=== PATIENT | female | born 1995 | race Two or more races ===

== ENCOUNTER 2019-01-10 08:47 | Outpatient (CLI) | payer OTHER | END 2019-01-10 10:56 | disposition home or self-care (01) | LOC: SONOGRAMA 08:47 | DX: E04.1 Nontoxic single thyroid nodule (principal) ==

== ENCOUNTER 2024-03-08 12:24 | Emergency (ER) | payer OTHER ==
[~2024-03-08] VITALS: Ht 167.6 cm; Wt 108.9 kg
== END 2024-03-08 15:40 | disposition home or self-care (01) ==
LOC: ER 12:27
DX: R07.89 Other chest pain (principal)